=== PATIENT | male | born 1950 | race Caucasian/White ===

== ENCOUNTER 2022-05-26 14:11 | Emergency (ER) | payer MEDICAID ==
[~2022-05-26] VITALS: Ht 170.2 cm; Wt 83.9 kg
[2022-05-26 14:20] VITALS: BP_SYST 142
--- NOTE | 2022-05-26 14:29 | NUR ---
Patient triaged and placed in waiting room. VSS and patient appears in no acute distress at this time. Accompanied by FRIEND, awaiting available bed, and MD notified of need for MSE.
--- NOTE | 2022-05-26 14:49 | NUR ---
Placed in room 3 . Placed on playground monitor, blood pressure machine and pulse oximeter. To gown for exam. Side rails up. Report given to CORTES SULLIVAN.
--- NOTE | 2022-05-26 15:37 | NUR ---
patient to ed after a fall from a roof and landing on right foot. pain in right foot. patient has b/l lower extremity pitting edema from previous chf.
[2022-05-26] MEDS ORDERED: MORPHINE 4 MG INJ. 4 MG/ML VIAL IM ONE (16:30)
[2022-05-26] MEDS ORDERED: HYDR-3917 PO (16:31)
[2022-05-26] MEDS ORDERED: IBUP-1971 PO (16:31)
--- NOTE | 2022-05-26 17:53 | NUR ---
patient administered morphine 8mg im at this time. patient tolerated, vss, receiving splint to right lower extremity at this time. will continue to keep comfortable and safe.
[2022-05-26 17:55] VITALS: BP_SYST 110
--- NOTE | 2022-05-26 18:35 | NUR ---
Patient given written and verbal discharge instructions and verbalizes understanding. ER MD discussed with patient the results and treatment provided. Patient in stable condition. ID arm band removed. IV catheter removed intact and dressing applied, no active bleeding. Rx of given. Patient educated on pain management and to follow up with PMD. Pain Scale . Opportunity for questions provided and answered. Medication side effect fact sheet provided. splint in place, good csm at this time, education rendered on splint care, patient verbalized understanding
== END 2022-05-26 18:36 | disposition home or self-care (01) ==
LOC: SED 14:11
DX: S92.001A Unspecified fracture of right calcaneus, initial encounter for closed fracture (principal); Z79.899 Other long term (current) drug therapy; W11.XXXA Fall on and from ladder, initial encounter; Y93.89 Activity, other specified; Y92.89 Other specified places as the place of occurrence of the external cause; Y99.8 Other external cause status
CPT/HCPCS: 99284; 29515; 73700; 73610; 73630; 76376; 96372; J2270

== ENCOUNTER 2023-09-28 15:02 | Emergency (ER) | payer MEDICAID ==
[~2023-09-28] VITALS: Ht 167.6 cm; Wt 79.4 kg
[~2023-09-28 15:02] MED LIST: HYDR-3917 PO; IBUP-1971 PO
[2023-09-28 15:50] VITALS: BP_SYST 134; PULSE 52; RESP 15; TEMP 97.8; O2SAT 98
[2023-09-28] MEDS: MAG HYDROX/AL HYDROX/SIMETH 30 ML, DICYCLOMINE HCL 20 MG, LIDOCAINE VISCOUS 2% 15ML (PO... PO ONE (16:45)
[2023-09-28] MEDS ORDERED: LIDOCAINE 1% 10 MG/ML, 20 ML MDV INJ ONE (17:15)
[2023-09-28] MEDS ORDERED: LIDOCAINE VISCOUS 2%, 15 ML UDC ONE (17:34)
[2023-09-28] MEDS: ACETAMINOPHEN 500 MG TABLET PO ONE (17:38)
[2023-09-28] MEDS: DIPHTH,PERTUSS(ACELL),TET VAC 0.5 ML VIAL (Tdap) I.M. ONE (17:42)
[2023-09-28] MEDS ORDERED: CEPH-548 PO (18:39)
[2023-09-28] MEDS ORDERED: BACI15OI13 TP (18:40)
[2023-09-28] MEDS ORDERED: BACITRACIN 1 GM OINT TP ONE (18:40)
[2023-09-28] MEDS: BACITRACIN 1 GM OINT TP ONE (18:47)
[2023-09-28] MEDS ORDERED: HYDR-3917 PO (19:01)
[2023-09-28] MEDS: cephALEXin 500 MG CAPSULE PO ONE (19:05)
[2023-09-28 19:06] VITALS: BP_SYST 134; PULSE 52; RESP 15; TEMP 97.8; O2SAT 98
== END 2023-09-28 19:06 | disposition home or self-care (01) ==
LOC: SED 15:02
DX: S61.211A Laceration without foreign body of left index finger without damage to nail, initial encounter (principal); Z79.899 Other long term (current) drug therapy; W27.0XXA Contact with workbench tool, initial encounter; Y93.89 Activity, other specified; Y92.89 Other specified places as the place of occurrence of the external cause; Y99.8 Other external cause status
CPT/HCPCS: 90715; 99284; J2001